=== PATIENT | female | born 1980 | race Caucasian/White ===

== ENCOUNTER 2022-04-01 14:48 | Outpatient (CLI) | payer OTHER, SELFPAY ==
--- NOTE | ~2022-04-01 | XR_ITS ---
EXAM: XR foot RT standing 2V DATE: 04/01/2022 15:27 HISTORY: R/O ARTHRITIS, RT FOOT SURGERY 2018, RT FOOT WORSE THAN LFT . COMPARISON: None available. FINDINGS: Normal mineralization. No fracture or dislocation. No lytic or blastic lesion. Moderate hart llux valgus. Fixation screws and paola in the first ray, without hardware fracture or perihardware lucency. Achilles and plantar enthesopathy. Mild loss of the longitudinal arch. No erosion or periost eal change. Soft tissues within normal limits. IMPRESSION: No hardware related complication. Achilles and plantar enthesopathy. Mild pes planus. Reviewed, dictated and finalized at location K. IMPRESSION: No hardware related complication. Achilles and plantar enthesopathy . Mild pes planus.
--- NOTE | ~2022-04-01 | XR_ITS ---
EXAM: XR hand BI arthritis min 3V DATE: 04/01/2022 15:26 HISTORY: R/O ARTHRITIS, RT HAND HAS MORE PAIN THEN THE LFT HAND . COMPARISON: None available. FINDINGS: Normal mineralization. Old right ulnar styloid fracture. No acute fracture or dislocation. No lytic or blastic lesion. Joint spaces are maintained. No erosion or periosteal change. Soft tissu es within normal limits. IMPRESSION: Normal bilateral hand radiograph findings. Reviewed, dictated and finalized at location K.
--- NOTE | ~2022-04-01 | XR_ITS ---
EXAM: XR foot LT standing 2V DATE: 04/01/2022 15:27 HISTORY: R/O ARTHRITIS, SURGERY TO LFT FOOT JUL 2018 . COMPARISON: None available. FINDINGS: Normal mineralization. No fracture or dislocation. No lytic or blastic lesion. Screw and s taple fixation in the first ray. Perihilar hardware lucency at the distal screw. No hardware fracture . Mild hallux valgus. Trace Achilles and moderate plantar enthesopathy. Mild loss of the longitudinal arch. No erosion or periosteal change. Soft tissues within normal limits. IMPRESSION: Perihilar hardware lucency at the distal fixation screw concerning for loosening or infec tion. Reviewed, dictated and finalized at location K. IMPRESSION: Perihilar hardware lucency at the distal fixation screw concerning for loosening or infection.
== END 2022-04-01 14:49 | disposition home or self-care (01) ==
LOC: ANHIMG 14:51
PROVIDERS: PCP Family Medicine; Visit Provider Internal Medicine
DX: R76.8 Other specified abnormal immunological findings in serum (principal); M13.80 Other specified arthritis, unspecified site
CPT/HCPCS: 73130; 73620

== ENCOUNTER 2022-05-29 08:50 | Outpatient (CLI) | payer OTHER, SELFPAY ==
--- NOTE | ~2022-05-29 | CT_ITS ---
EXAMINATION: CT chest high resolution wo ri DATE: 05/29/2022 09:14 INDICATION: Interstitial lung disease, pulmonary fibrosis TECHNIQUE: Computed tomography (CT) of the chest was performed without intravenous contrast. The dose -length product (DLP) was 660.93 mGy-cm. Automated exposure control and iterative reconstruction tech nique were employed. COMPARISON: None FINDINGS: There is a cluster of nodules in the right lower lobe measuring up to 7 mm. No specific fin dings of interstitial lung disease are identified. Calcified right hilar lymph nodes likely reflect o ld granulomatous disease. The lungs are free of focal airspace opacities. No pleural effusion or pneu mothorax. No pathologically enlarged thoracic lymph nodes are identified. The heart size is normal. T here is mild thoracic spondylosis. There are surgical changes of the stomach. IMPRESSION: 1. No specific findings of chronic interstitial lung disease. 2. Clustered nodules in the right lower lobe, likely infectious/inflammatory. Reviewed, dictated and finalized at location B.
== END 2022-05-29 08:51 ==
PROVIDERS: PCP Family Medicine; Visit Provider Internal Medicine Pulmonary Disease
DX: R21 Rash and other nonspecific skin eruption (principal); R76.8 Other specified abnormal immunological findings in serum; J84.10 Pulmonary fibrosis, unspecified; M13.80 Other specified arthritis, unspecified site; R91.8 Other nonspecific abnormal finding of lung field
CPT/HCPCS: 71250

== ENCOUNTER 2022-05-29 09:30 | Outpatient (CLI) | payer OTHER, SELFPAY ==
--- NOTE | 2022-06-01 17:50 | WPDPFTINT ---
PFT Procedure Performed PFT Procedure Performed Spirometry with Pre/Post Bronchodilator Plethysmography (Lung Vol) Diffusing Cap (DLCO) Flow Vol Loop PFT Interpretation This is a pulmonary function test with pre and post-bronchodilator spirometry, plethysmography and diffusing capacity. The test was performed and results interpreted in accordance with the 2019 and 2005 ATS/ERS Task Force guidelines respectively using the Global Lung Function Initiative-2012 reference equations. Patient demonstrated good effort and cooperation. Reproducibility criteria were met. The quality of the pre bronchodilator spirometry maneuver was Grade A and post bronchodilator spirometry maneuver was Grade A. Findings: Spirometry: The contour the inspiratory and expiratory flow tracing are normal. The pre bronchodilator FVC is 4.43 L, 104% predicted. The pre bronchodilator FEV1 is 3.53 L, 102% predicted. The pre bronchodilator FEV1: FVC ratio was 80%. The post bronchodilator FVC is 4.63 L, representing a 4% increase. The post bronchodilator FEV1 is 3.76 L, representing a 7% increase. The post bronchodilator FEV1: FVC ratio was 81%. Plethysmography: The total lung capacity is 6.41 L, 113% predicted. The functional residual capacity is 3.51 L, 111% predicted. The residual volume is 1.69 L, 95% predicted. Diffusing capacity: The diffusing capacity unadjusted for hemoglobin and carboxyhemoglobin is 27.7, 108% predicted. The diffusing capacity adjusted for alveolar volume is 5.19, 113% predicted. Impression: The spirometry is normal without evidence of an obstructive abnormality. There is no significant improvement after inhaling a single dose of albuterol. The lung volumes are normal. The diffusing capacity is normal. There are no prior studies for comparison
== END 2022-05-29 09:31 | disposition home or self-care (01) ==
PROVIDERS: PCP Family Medicine; Visit Provider Internal Medicine Pulmonary Disease
DX: J84.10 Pulmonary fibrosis, unspecified (principal); R21 Rash and other nonspecific skin eruption
CPT/HCPCS: 94060; 94726; 94729

== ENCOUNTER 2022-06-03 08:11 | Outpatient (CLI) | payer OTHER, SELFPAY ==
--- NOTE | 2022-06-18 10:09 | WPDSLEEPSTUD ---
Sleep Study Date of Study: 06/03/22 Ordering Provider: Chaz Acuña MD Interpreting Physician: Rhona Lujan MD Sleep Study Type: Split Polysomnogram Height: 1.73 m Weight: 117.934 kg Body Mass Index: 39.5 Neck Circumference (inches): 15.5 Leonard: 14 Reason for Sleep Study Non restorative sleep, previously used CPAP in 2018 prior to losing 90 lb bariatric surgery March 2020 Sleep History Chelsy Yan is a 41 year-old woman with a history of obstructive sleep apnea, anxiety, GERD and hypertension with palpitations. She used CPAP before losing 90 lb. She has frequent nightmares. She talks in her sleep. She wakes up feeling exhausted. She moves quite a bit at night. With CPAP use, she often took off the mask during the night. She has a difficult time falling asleep and staying asleep. Both parents wear CPAP and have restless legs syndrome. She occasionally awakens from sleep feeling short of breath. She frequently awakens at night with heartburn, belching or coughing. She occasionally snores and occasionally this is loud enough that others complain about it. She constantly has trouble sleeping with a cold. She occasionally wakes up gasping for breath at night. She occasionally has breathing problems at night observed by others. She frequently sweats excessively at night. She constantly notices her heart pounding or beating irregularly at night. She frequently falls asleep during the day, rarely falls asleep involuntarily, never falls asleep while driving. She does not have loss of muscle tone with strong emotion. She occasionally has daytime difficulties due to excessive sleepiness. 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 She occasionally feels paralyzed on waking or falling asleep. She frequently has vivid dreamlike scenes on waking or falling asleep. She does not feel afraid to go to sleep. Normal bedtime is between 9:00 p.m. and 10:00 p.m., taking hours to fall asleep, typically waking 3-4 times at night. During these awakenings, she may go to the bathroom, toss and turn and try to reposition. It may take her 15 minutes or up to 2 hours to return to sleep. She wakes the morning at 6:45 a.m.. On weekends, she stays awake later, 11:00 p.m. and wakes later, 8:00 a.m.. Her work schedule is 3-4 days a week 7:30 a.m. to 7:30 p.m.. She takes naps in the afternoon or evening. A short nap is not refreshing. She is drowsy after waking for 2 hours. She feels better in the evening compared to other times of day. Habits: Never smoked tobacco. Caffeine 40 oz a day. No alcohol. No recreational drugs. [facility] Past Medical History Medical History (Updated 06/18/22 @ 12:14 by Rhona Lujan MD) Allergies RENETTA positive Anxiety Cancer GERD (gastroesophageal reflux disease) Granulomatous lung disease Headache Hypertension Obstructive sleep apnea Rash and nonspecific skin eruption Secondary inflammatory arthritis Surgical History Surgical History H/O gastric sleeve H/O sinus surgery H/O wrist surgery History of bunionectomy History of carpal tunnel surgery Hx of tonsillectomy Previous section Social History Social History Smoking status: Never smoker Alcohol intake: never Medications Home Medications Medication Instructions Recorded Confirmed Type cetirizine 10 mg tablet (Zyrtec) 10 mg PO DAILY PRN 03/31/22 05/12/22 History citalopram 40 mg tablet 40 mg PO DAILY 03/31/22 05/12/22 History desogestrel 0.15 mg-ethinyl 1 tablet PO DAILY 03/31/22 05/12/22 History estradiol 0.03 mg tablet (Isibloom) nebivolol 10 mg tablet (Bystolic) 10 mg PO DAILY 03/31/22 05/12/22 History omeprazole 20 mg capsule,delayed 20 mg PO DAILY 03/31/22 05/12/22 History release albuterol sulfate 90 mcg/actuation 2 inh inhalation Q4H PRN shortness 05/12/22 05/12/22 Rx aerosol inhaler of breath
[2022-06-18 12:10] VITALS: BMI 39.5
--- NOTE | 2022-07-22 14:07 | SLEEP ---
pt has rcd machine from [facility] care
== END 2022-06-04 06:53 | disposition home or self-care (01) ==
LOC: ANHCSM 08:18
PROVIDERS: PCP Family Medicine; Visit Provider Internal Medicine Pulmonary Disease
DX: G47.10 Hypersomnia, unspecified (principal); G47.33 Obstructive sleep apnea (adult) (pediatric); G47.61 Periodic limb movement disorder
CPT/HCPCS: 95811

== ENCOUNTER 2023-10-21 08:00 | Outpatient (CLI) | payer BC, SELFPAY ==
--- NOTE | ~2023-10-21 | CT_ITS ---
EXAMINATION:CT diagnostic chest wo con DATE: 10/21/2023 09:13 INDICATION: Pulmonary fibrosis, unspecified. TECHNIQUE: Computed tomography (CT) of the chest was performed without intravenous contrast. Automate d exposure control and iterative reconstruction technique were employed. The dose-length product (DLP ) was 274.34 mGy-cm. COMPARISON: Chest CT 05/29/2022 FINDINGS: Calcified right lung nodules and calcified right hilar lymph nodes are consistent with old granulomatous disease. There are small bilateral posterior diaphragmatic hernias containing fat. No b ronchiectasis or honeycombing. No pleural effusion. The heart size is normal. No pericardial effusion . There are surgical changes in the stomach. There is mild thoracic spondylosis. There is mild chroni c anterior wedging of T11-L1 vertebral bodies. IMPRESSION: 1. No evidence of chronic interstitial lung disease. Reviewed, dictated and finalized at location A.
--- NOTE | 2023-10-21 15:50 | WPDPFTINT ---
PFT Procedure Performed PFT Procedure Performed Spirometry with Pre/Post Bronchodilator Plethysmography (Lung Vol) Diffusing Cap (DLCO) Flow Vol Loop PFT Interpretation DOS: 10/21/2023 REQUESTING: Dr Chaz Acuña REASON FOR TESTING: asthma, possible granulomatous disease PULMONARY FUNCTION TESTS Results are reliable and reproducible. Spirometry: Pre-bronchodilator FEV1 is 3.93 L, 114%, normal. Pre bronchodilator FVC is 4.75 L, 112%, normal. FEV1/FVC is 83%. After bronchodilator there is a 1% increase in the FEV1 and the FVC, insignificant, the ratio remains the same. Lung volumes: Total lung capacity is 6.29 L, 111%, normal. Residual volume is 1.54 L, 86%, normal. RV/TLC is 24%, normal range. FB are see is 3.02 L, 95%, normal. Airway resistance is 0.12umZ96/L/sec, 55%, low. Diffusion: DLCO is 28.6, 113%, normal. DLCO/VA is 4.83, 106%, normal. Flow volume loop: Overall configuration is rounded, both inspiratory and expiratory limbs. IMPRESSION: Normal spirometry without response to bronchodilator, normal lung volumes and normal diffusion. Like response to bronchodilators should not preclude use of clinically indicated. Compared to a prior study on 05/29/2022 values are similar. Rhona Lujan MD
== END 2023-10-21 08:01 | disposition home or self-care (01) ==
LOC: ANHPFT 08:01
PROVIDERS: PCP Family Medicine; Visit Provider Internal Medicine Pulmonary Disease
DX: J84.10 Pulmonary fibrosis, unspecified (principal); M13.80 Other specified arthritis, unspecified site; L92.0 Granuloma annulare; R76.8 Other specified abnormal immunological findings in serum; R21 Rash and other nonspecific skin eruption
CPT/HCPCS: 71250; 94060; 94726; 94729

== ENCOUNTER 2023-11-19 08:26 | Outpatient (CLI) | payer BC, SELFPAY ==
[2023-11-19 09:02] LABS: Hematocrit 41.1 % (37.0-47.0); Hemoglobin 13.1 g/dL (12.0-15.0); Immature Platelet Fraction Pct 13.9 % (0.9-11.2); Mean Corpuscular HGB Conc 31.9 g/dl (32-36); Mean Corpuscular Hemoglobin 30.3 pg (26-34); Mean Corpuscular Volume 95.1 fl (80-100); Mean Platelet Volume 13.2 fl (7.4-10.4); Platelet Count Result 224 k/mm3 (150-375); Red Blood Count 4.32 M/mm3 (4.2-5.4); Red Cell Distribution Width 13.6 % (11.5-14.5); White Blood Count 6.5 K/mm3 (4.5-10.0)
[2023-11-19 09:10] LABS: Alanine Aminotransferase 18 U/L (6-35); Albumin Level 4.2 g/dL (3.5-5.1); Alkaline Phosphatase 59 U/L (38-126); Anion Gap 4 mmol/L (4-12); Aspartate Amino Transferase 22 U/L (14-36); Bilirubin,Total 0.5 mg/dL (0.2-1.3); Blood Urea Nitrogen 12 mg/dL (7-17); Calcium 9.4 mg/dL (8.4-10.2); Carbon Dioxide 29 mmol/L (22-30); Chloride 107 mmol/L (98-107); Estimated Glomerular Filt Rate > 60; Glucose 92 mg/dL (65-110); Sodium 140 mmol/L (137-145)
[2023-11-19 10:13] LABS: Hepatitis B Surface Antigen Negative (Negative)
[2023-11-19 10:31] LABS: Hepatitis B Surface Anti Res Negative; Hepatitis C Virus Antibody Negative (Negative)
[2023-11-21 06:55] LABS: Hepatitis B Core Ab Total NON-REACTIVE (NON-REACTIVE)
[2023-11-22 14:18] LABS: NIL 0.02 IU/mL; Quantiferon TB Plus, 1T NEGATIVE (NEGATIVE)
== END 2023-11-19 08:27 | disposition home or self-care (01) ==
PROVIDERS: PCP Family Medicine
DX: Z79.899 Other long term (current) drug therapy (principal)
CPT/HCPCS: 36415; 80048; 80076; 85027; 85055; 86480; 86704; 86706; 86803; 87340

== ENCOUNTER 2024-11-28 09:09 | Outpatient (CLI) | payer BC, SELFPAY ==
--- NOTE | ~2024-11-28 | MM_ITS ---
EXAMINATION: MM screening fanny BI w flaquita HISTORY: Screening TECHNIQUE: Craniocaudal and mediolateral oblique 3-D tomosynthesis images were obtained and synthetic 2-D images were generated. CAD analysis was submitted and interpreted. COMPARISON: No prior mammogram is available for comparison at this institution. BREAST PARENCHYMAL COMPOSITION: Not dense: There are scattered areas of fibroglandular density. FINDINGS: There is no evidence of suspicious mass, calcification, or architectural distortion to sugg est malignancy in either breast. There has been no suspicious interval change. IMPRESSION: 1. No mammographic evidence of malignancy. 2. Recommend routine screening mammography in one year. BI-RADS Category 1: Negative Reviewed, dictated and finalized at location A.
--- OUTSIDE RECORDS SUMMARY | 2024-11-28 10:03 | XMS_ITS | Encounter Summary ---
Author Organization [facility] Address [address] [place] [place] [address] Care Team Providers Care Crew Caller Name Role Phone Melanie Neves MD Primary Care Provider [phone] Encounter Details Date Type Department Care Team (Late st Contact Info) Description 06/22/2022 Lab Requisition [facility] [address] [place] [id number] Lonny Mckeon MD [address] [facility] [address] [place] [address] Social History Tobacco Use Types Packs/Day Years Used Date Smoking Tobacco: Never Smokeless Tobacco: Never Alcohol Use Standard Drinks/Week Comments No 0 (1 standard drink = 0.6 oz pur e alcohol) rare Comments No Sex and Gender Information Value Date Recorded Sex Assigned at Not on file Legal Sex Female 7:36 PM 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 Answer Date of Assessment Author No 04/03/2020 4:45 PM CDT Odessa Gordon RN * Is person blind or have serious difficulty seeing? Answer Date of Assessment Author No 04/03/2020 4:45 PM CHARLIT Odessa Gordon RN * Does person have serious difficulty walking/climbing stairs? Answer Date of Assessment Author No 04/03/2020 4:45 PM CDT Odessa Gordon RN * Does person have difficulty dressing/bathing? Answer Date of Assessment Author No 04/03/2020 4:45 PM CDT Odessa Gordon RN * Does person have difficulty doing errands alone? Answer Date of Assessment Author No 04/03/2020 4:45 PM CHARLIT Odessa Gordon RN documented as of this encounter Mental Status * Does person have difficulty concentrating/remembering/making decisions? Answer Entry Date Author No 04/03/2020 4:45 PM Odessa Cunningham RN documented in this encounter Plan of Treatment Upcoming Encounters Date Type Department Care Team (Late st Contact Info) Description 06/29/2025 11:30 AM SENIOR SYSTEM OPERATOR Video Visit [facility] [address] [place] [address] Claudia Drake APRN-SHIPPING SUPPORT [address] [facility] [address] [place] [address] documented as of this encounter Procedures Procedure Name Priority Date/Time Associated Diagnosis Comments DERMATOPATHOLOGY Routine 06/19/2022 12:0 0 AM SENIOR SYSTEM OPERATOR documented in this encounter Results * DERMATOPATHOLOGY (06/19/2022 12:00 AM SENIOR SYSTEM OPERATOR) Case Report Dermatopathology Report Case: [id number] Authorizing Provider: Lonny Mckeon MD Collected: 06/19/2022 12:00 AM Ordering Location: [facility] Derm[facility] Lab Received: 06/22/2022 07:19 AM Pathologist: Sushila Reese MD Specimen: Skin, left wrist 2 3:42 PM SENIOR SYSTEM OPERATOR DERMATOPATHOLOGY LABORATORY Final Diagnosis Specimen A. SKIN, left wrist: GRANULOMATOUS DERMATITIS (L92.0) (see microscopic description and comment) 2 3:42 PM [facility] DERMATOPATHOLOGY LABORATORY Clinical History Sarcoidosis vs. Other. Path# [id number] 2 3:42 PM [facility] DERMATOPATHOLOGY LABORATORY Gross Description Specimen A: Received is one formalin filled container labeled with the patient's name and designated left wrist. The specimen consists of a shave biopsy measuring [id number] and another piece of tissue measuring [id number]. Jar 0. 2 3:42 PM [facility] DERMATOPATHOLOGY LABORATORY Microscopic Description Specimen A. SKIN, left wrist: Epidermis and superficial portions of papillary dermis are present for evaluation. There are lymphocytes around blood vessels and histiocytes between collagen bundles some of which are arranged in a palisade. Eosinophils and neutrophils are not seen. Birefringent material is not observed when the specimen is examined under polarized light. Colloidal iron stain reveals dermal mucin deposition. Grocott's methenamine silver (GMS) stain fails to highlight fungal elements in the available sections. CRISELDA stain is negative for acid-fast mycobacteria in the sections examined. COMMENT: The histologic differential diagnosis includes granuloma annulare, which is somewhat favored, interstitial granulomatous dermatitis, a granulomatous hypersensitivity reaction, less likely an infectious process. Sarcoidosis was considered, however less likely given the degree of associated dermal lymphoid infiltrate. Clinical correlation with culture is recommended if clinically indicated. 2 3:42 PM [facility] DERMATOPATHOLOGY LABORATORY Disclaimer An external and internal positive and negative controls are appropriate for the histochemical, immunohistochemical and immunofluorescence stain(s) in this case (if any), except where stated explicitly. The performance characteristics of the stain(s) cited in this report were developed and its performance characteristic determined by the Dermatopathology Laboratory at [facility], directed by Dr. Jannet Davis. These tests need not be, and therefore are not, approved by the [place] Food and Drug Administration. The tests are used for clinical purposes. Billing Codes Specimen Charges Stain Charges 58443 1 [id number] 1 1 1 2 3:42 PM [facility] DERMATOPATHOLOGY LABORATORY Embedded Images 2 3:42 PM [facility] DERMATOPATHOLOGY LABORATORY Pathology/Cytolog y TISSUE SPECIMEN FROM SKIN / Unknown 06/19/2022 06/22/2022 7:19 AM [facility] us Lonny Mckeon MD LAB - PATHOLOGY/CYTOLOGY ORDER KAYLA Final Result DERMATOPATHOLOGY LABORATORY [facility] - Department of Dermatology [address], [address] [phone] documented in this encounter Visit Diagnoses Not on filedocumented in this encounter Care Teams Crew Caller Relationship Specialty Start Date End Date Melanie Neves MD [address] [facility] [address] [place] [address] PCP - General Family Medicine 07/22/13 documented as of this encounter
--- OUTSIDE RECORDS SUMMARY | 2024-11-28 10:03 | XMS_ITS | Encounter Summary ---
Author Organization [facility] Address [address] [place] [address] Care Team Providers Care Electromechanical Assembler Name Role Phone Melanie Neves MD Primary Care Provider [phone] Kristen Lopez MD Unavailable [phone] Kristen Lopez MD Unavailable [phone] Kristen Lopez MD Unavailable [phone] Kristen Lopez MD Unavailable [phone] Kristen Lopez MD Unavailable Encounter Details Date Type Department Care Team (Late st Contact Info) Description 05/05/2024 Prep for Procedure [facility] Pre-[facility]mission [place] [address] Pla Gonzalez MD [address] 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 Wish to be (Past 1 Month) No 05/05/2024 6:45 AM CDT Leticia Aleman RN Act robina 2. Non-Specific Active Suicidal Thoughts (Past 1 Month) No 05/05/2024 6:45 AM CDT Leticia Aleman RN Act robina 6. Suicidal Behavior (Lifetime) No 05/05/2024 6:45 AM CDT Leticia Aleman RN Act robina documented as of this encounter Plan of Treatment Not on file documented as of this encounter Results * URINE BACTERIA CULTURE (04/29/2024 11:44 AM CDT) SPEC DESCRIPTION URINE CLEAN CATCH 04/29/2024 11:44 AM CDT [facility] SPECIAL REQUESTS NO SPECIAL REQUEST 04/29/2024 11:44 AM CDT [facility] CULTURE RESULT NO GROWTH 2 DAYS 05/01/2024 7:11 AM CDT [facility] URINE SPECIMEN OBTAINED BY CLEAN CATCH PROCEDURE / Unknown 04/29/2024 11:44 AM CDT 04/29/2024 11:50 AM CDT us Pal Gonzalez MD MICROBIOLOGY - GENERAL ORDERABLES Final Result [facility] [address] [place] [address], [place] [phone] documented in this encounter Visit Diagnoses Diagnosis Right renal stone- Primary documented in this encounter Care Teams Electromechanical Assembler Relationship Specialty Start Date End Date Melanie Neves MD [address] [place] [phone] PCP - General FAMILY PRACTICE 06/21/18 Kristen Lopez MD [address] [place] [address] CARDIOVASCULAR DISEASE 05/01/24 Kristen Lopez MD [address] [place] [address] CARDIOVASCULAR DISEASE 05/02/24 [place] [address] [address] CARDIOVASCULAR DISEASE 05/02/24 [place] [address] [address] CARDIOVASCULAR DISEASE 05/02/24 [place] [address] [address] CARDIOVASCULAR DISEASE 05/02/24 documented as of this encounter
--- OUTSIDE RECORDS SUMMARY | 2024-11-28 10:03 | XMS_ITS | Clinical Summary ---
Author Organization [facility] Address [address] [place] [address] Care Team Providers Care Superintendent Building Name Role Phone Melanie Neves MD Primary Care Provider [phone] Source Comments [facility],non-owned Affiliates and Associated Physician Practices is amultiple site organization consisting of ambulatory clinics and hospital sitesin [place], [place], [place] and [place]. This disclosure is being madepursuant to the Care Everywhere program and may not contain all information available regarding this patient. Last updated 18.[facility] Allergies Active Allergy Reactions Criticality Noted Date Comments Amoxicillin Urticaria Medium 07/22/2013 Codeine Vomiting 07/22/2013 Contrast-Iodinated Agents For Ct/Other Urticaria Medium 03/04/2024 Hydrocodone Vomiting 07/22/2013 Neomycin Swelling,Skin Reactions 01/22/2020 causes it to fester and pus Nsaids Other 01/11/2021 Gastric sleeve surgery Penicillins Urticaria Medium 1986 Vancomycin Rash Medium 01/22/2020 Medications * Be aware that medications may not be up to date on this document. Alwaysverify current medications with the patient. citalopram (CELEXA) 40 MG tablet Take 1 (one) tablet by mouth at bedtime Active nebivolol (Bystolic) 10 MG tablet Take 1 (one) tablet by mouth at bedtime Active Dulera 200-5 MCG/ACT inhaler Inhale 1 (one) puff by mouth 2 times daily 3 Active omeprazole (PriLOSEC) 20 MG capsuleIndicati ons:Gastroesoph ageal reflux disease without esophagitis Take 1 (one) capsule by mouth 2 times daily, before breakfast and supper 60 capsule 11 4 Active hydroxychloroqu ine (Plaquenil) 200 MG tablet Take 2 (two) tablets by mouth at bedtime Active multivitamin daily tablet Take 1 (one) tablet by mouth daily with food Active B Hevcsou-U-Jkdgv Acid (vitamin B complex with C) Take 1 (one) tablet by mouth once daily Active acetaminophen (Tylenol) 325 MG tablet Take 2 (two) tablets by mouth every 6 hours as needed Maximum allowable Acetaminophen amount = 4 Grams (4000 mg) / 24 hours. 4 Active ondansetron, disintegrating, (Zofran ODT) 4 MG tablet Take 1 (one) tablet by mouth every 6 hours as needed for Nausea/Vomiting Allow tablet to dissolve on the tongue 20 tablet 4 Active Additional Information Patient not taking.Reported on 03/13/2024 polyethylene glycol 3350 (Miralax) 17 g packet Take 17 (seventeen) g by mouth once daily as needed for Constipation 4 Active ondansetron, disintegrating, (Zofran ODT) 4 MG tablet DISSOLVE 1 (ONE) TABLET ON THE TONGUE EVERY 6 HOURS NEEDED FOR NAUSEA/VOMITING 20 tablet 4 025 Active Active Problems Problem Noted Date Diagnosed Date Peptic ulcer disease 03/04/2024 Abdominal pain, unspecified abdominal location 0 03/04/2024 S/P gastric bypass 06/30/2023 S/P laparoscopic sleeve gastrectomy 04/03/2020 Supervision of normal first 07/23/2013 Overview (07/23/2013): Blood type: O- Rubella: immune Hep B surface antigen:non-reactive RPR: non-reactive HIV:Negative GCT: 73 Migraines 07/23/2013 Hypertension in 07/23/2013 Overview (07/23/2013): labetelol 100 BID Immunizations Immunization Administration Dates Next Due INFLUENZA VACCINE 06/09/2013 INFLUENZA VACCINE, QUADR. (F LUZONE; FLULAVAL; FLUARIX; AFLURIA QUADRIVALENT; 6MO+), 0.5 ML (IIV4) 06/17/2020 Rho D Immune Globulin 07/24/2013 TDAP (7yrs+) 07/24/2013 Family History Medical History Relation Name Comments Diabetes Father Heart Disease Father Hypertension Father Hypertension Mother CAD (Coronary Artery Disease) Paternal Uncle CVA Paternal Uncle Diabetes - Type 2 Paternal Uncle Relation Name Status Comments Father Mother Paternal Uncle Social History Tobacco Use Types Packs/Day Years Used Date Smoking Tobacco: Never Passive Smoke Exposure: Never Smokeless Tobacco: Never Tobacco Cessation:Counseling Given: Not Answered Alcohol Use Standard Drinks/Week Comments Not Currently 0 (1 standard drink = 0.6 oz pur e alcohol) rare AUDIT-C Answer Date Recorded Q1: How often do you have a drink containing alc ohol? Monthly or less 03/06/2024 Q2: How many drinks containi ng alcohol do you have on a typical day when you are drinking? 1 or 2 03/06/2024 Q3: How often do you have si x or more drinks on one occasion? Never 03/06/2024 Overall Financial Resource Strain (CARDIA) Answe r Date Recorded How hard is it for you to pa y for the very basics like food, housing, medical care, and heating? Not very hard 03/06/2024 [facility] - Occupational Stress Questionnaire Answer Date Recorded Do you feel stress - tense, restless, nervous, or anxious, or unable to sleep at night because your mind is troubled all the time - these days? Not at all 03/06/2024 Hunger Vital Sign Answer Date Recorded Within the past 12 months, y ou worried that your food would run out before you got the money to buy more. Never true 03/06/20 24 Within the past 12 months, t he food you bought just didn't last and you didn't have money to get more. Never true 03/06/2024 PRAPARE - Transportation Answer Date Re corded In the past 12 months, has l ack of transportation kept you from medical appointments or from getting medications? No 02/07 In the past 12 months, has l ack of transportation kept you from meetings, work, or from getting things needed for daily living? No 03/06/2024 Housing Stability Vital Sign Answer Apollo e Recorded In the last 12 months, was t here a time when you were not able to pay the mortgage or rent on time? No 03/06/2024 In the last 12 months, how many places have you lived? 1 03/06/2024 In the last 12 months, was t here a time when you did not have a steady place to sleep or slept in a fdc (including now)? 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 Gender Identity Not on file Sexual Orientation Not on file Last Filed Vital Signs Vital Sign Reading Time Taken Comments Blood Pressure 116/76 03/13/2024 10:47 AM CDT Pulse 83 03/13/2024 10:47 AM CDT Temperature 36.3 C (97.4 F) 03/13/2024 10:47 AM CDT Respiratory Rate 18 03/06/2024 7:33 AM CDT Oxygen Saturation 98% 03/13/2024 10:47 AM CDT Inhaled Oxygen Concentration - - Weight 92.7 kg (204 lb 6.4 oz) 03/13/2024 10:47 AM CDT Height 172 cm (5' 7.72 ) 03/13/2024 10:47 AM CDT Body Mass Index 31.34 03/13/2024 10:47 AM CDT Plan of Treatment Upcoming Encounters Date Type Department Care Team (Late st Contact Info) Description 06/29/2025 11:30 AM BAND HEAD SAW OPERATOR Video Visit [facility] Weight Management Services [id number] [place] [address] Claudia Drake, MARINE CARGO INSPECTOR-TURNAROUND ENGINEER [address] [place] [address] Health Maintenance Due Date Last Done Comments LIPID TESTING 1982 MAMMOGRAM 1982 HIV SCREENING 1997 HEPATITIS C SCREENING 12/18/2000 HEPATITIS B VACCINE (1 of 3 - 19+ 3-dose series) 2001 DTAP/TDAP/TD VACCINES (2 - Td or Tdap) 07/24/2023 07/24/2013 COVID-19 VACCINE ( season) 2024 04/30/2022, 05/13/2021, 10/13/2020, Additional history exists DEPRESSION SCREENING 08/09/2024 INFLUENZA VACCINE (Season Ended) 2025 04/30/2022, 05/13/2021, 06/17/2020, Additional history exists SCREENING FOR DIABETES 03/06/2027 , 03/05/2024, 03/05/2024, Additional history exists PAP SMEAR 06/14/2027 06/14/2024 ZOSTER VACCINE (1 of 2) 2032 HIB VACCINE Aged Out No longer eligi ble based on patient's age to complete this topic HPV VACCINE Aged Out No longer eligi ble based on patient's age to complete this topic MENINGOCOCCAL (Group B) VACCINE SHARED DECISION-MAKING Aged Out No longer eligible based on patient's age to complete this topic MENINGOCOCCAL GROUPS A/C/Y/W VACCINE Aged Out No longer eligible based on patient's age to complete this topic PNEUMOCOCCAL VACCINE Aged Out No long er eligible based on patient's age to complete this topic Procedures Procedure Name Priority Date/Time Associated Diagnosis Comments HEMOGLOBIN A1C Routine 03/06/2024 3:58 AM CDT from Last 3 Months or Most Recently Relevant to Health Maintenance Results * HEMOGLOBIN A1C (03/06/2024 3:58 AM CDT) Hemoglobin A1c 5.1 <5.7 % 03/06/2024 5:08 AM CDT [facility] Estimated Average Glucose 100 mg/dL 03/06/2024 5:08 AM CDT [facility] Blood BLOOD SPECIMEN / Unknown Venipuncture / Unknown 03/06/2024 3:58 AM CDT 03/06/2024 4:43 AM CDT Narrative [facility] - 03/06/2024 5:08 AM CDT HbA1c Interpretation: Normal: < 5.7% Pre-diabetes: 5.7-6.4% Diabetes: Equal to or greater than 6.5% Test results diagnostic of diabetes should be repeated for confirmation. Treatment target values recommended by ADA and other clinical organizations should be used to evaluate metabolic control in patients. This test should not replace glucose testing for patients with Type 1 diabetes, pediatric patients, or women. Falsely low HbA1c results may be observed in patients with clinical conditions that shorten erythrocyte life span or decrease mean erythrocyte age such as the presence of unstable hemoglobin variants, elevated hemoglobin F level or other causes of hemolytic anemia. HbA1c may not accurately reflect glycemic control when clinical conditions that affect erythrocyte survival are present. Severe Iron deficiency anemia may yield falsely high results. Hemoglobin A1c assay should not be used to diagnose or monitor diabetes in patients with malignancy, recent blood transfusion, chronic kidney or liver disease. This method may yield falsely low results when hemoglobin (HbF) exceeds 5% in the specimen. The Bernardo Alinity assay for the measurement of HbA1c is a National Glycohemoglobin Standardization Program (NGSP) certified method. 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 Man Expl anation Adv Directive/Living Will/POA 04/05/2020 5:04 PM * Full Code (Latest Code Status on File) Date Activated Date Inactivated Comments 03/04/2024 5:37 AM 03/06/2024 11:59 AM * Full Code Date Activated Date Inactivated Comments 06/30/2023 2:28 PM 07/01/2023 3:40 PM * Full Code Date Activated Date Inactivated Comments 04/03/2020 10:24 AM 04/04/2020 5:19 PM * FULL RESUSCITATION Date Activated Date Inactivated Comments 07/23/2013 7:41 PM 07/25/2013 1:17 PM * FULL RESUSCITATION Date Activated Date Inactivated Comments 07/23/2013 12:57 PM 07/23/2013 5:26 PM Healthcare Agents on File Name Relationship Healthcare Agent Relationshi p Communication Sam Yan Father Power of Bottling Room Worker (POA) Care Teams Superintendent Building Relationship Specialty Start Date End Date Melanie Neves MD [address] [place] [address] PCP - General Family Medicine 07/22/13
--- OUTSIDE RECORDS SUMMARY | 2024-11-28 10:03 | XMS_ITS | Clinical Summary ---
Author Organization [facility] Address [address] 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
--- OUTSIDE RECORDS SUMMARY | 2024-11-28 10:03 | XMS_ITS | CONTINUITY OF CARE DOCUMENT ---
Author Name naderlorriemadison Address Unknown Organization [facility] Address [address] [place] [address] Phone [phone] Care Team Providers Care Information Technology Technician Name Role Phone John SHELTON, Kristen Unavailable SAMANTHA BARTH MD Unavailable [phone] SAMANTHA BARTH MD Unavailable [phone] PROBLEMS Condition Status Date Provider Notes Dizziness active Kristen Lopez MD Pseudotumor cerebri active Kristen Mondragon Hypertension active ? Kristen Lopez MD NICHOLE - on CPAP active Kristen Lopez MD Palpitations active Kristen Lopez MD Obesity s/p bariatric surgery active Eduard Lopez MD PVC's w/bigeminy active Kristen Lopez MD Leg Edema active Kristen Lopez MD arthritis - inflammatory active Kristen randhawa MD Syncope active Kristen Lopez MD Granuloma annulare active Kristen Lopez MD Cardiology examination active Kristen weems MD ENCOUNTERS Date Type Provider Location Encounter Diag nosis - In-person encounter Office Visit Essence Friend MD [facility] - In-person encounter Office Visit Kristen Lopez MD [facility] Cardiology examination - In-person encounter Office Visit Kristen Lopez MD [facility] SyncopeGranuloma annulare - In-person encounter Office Visit Kristen Lopez MD [facility] - In-person encounter Office Visit Kristen Lopez MD [facility] arthritis - inflammatory - In-person encounter Office Visit Kristen Lopez MD [facility] - In-person encounter Office Visit Kristen Lopez MD [facility] Obesity s/p bariatric surgery - In-person encounter Office Visit Kristen Lopez MD [facility] - In-person encounter Office Visit Kristen Lopez MD [facility] - In-person encounter Office Visit Kristen Lopez MD [facility] Obesity s/p bariatric surgeryPVC's w/bigeminyLeg Edema - In-person encounter Office Visit Kristen Lopez MD [facility] - In-person encounter Office Visit Kristen Lopez MD [facility] DizzinessPseudotumor cerebriHypertensionOSA - on CPAPPalpitations VITAL SIGNS Date Observation Value Provider Body Mass Index (Ratio) 28.79 kg/m2 Oscar Walters blood pressure, diastolic 109 mm[Hg] Rosario Zamorano blood pressure, systolic 139 mm[Hg] Ibeth Zamorano oxygen saturation, oximetry 97 % Flor Zamorano pulse rate 104 /min Flor Zamorano respiratory rate E&M 12 /min Flor Zamorano weight E&M 195 [lb_av] Flor Zamorano height E&M 69 [in_i] Flor Zamorano blood pressure, cuff size regular [facility] Body [facility] (Ratio) 29.68 kg/m2 Meseret Lopez MD blood pressure, diastolic 64 mm[Hg] [facility] blood [facility], systolic 109 mm[Hg] [facility] oxygen saturation, oximetry 100 % [facility] pulse rate 67 /min [facility] respiratory rate E&M 12 /min [facility] weight E&M 201 [lb_av] [facility] height E&M 69 [in_i] [facility] blood pressure, cuff size regular [facility] (Ratio) 29.24 kg/m2 Oscar Walters blood pressure, diastolic 82 mm[Hg] [facility], systolic 115 mm[Hg] dennis [facility] oxygen saturation, oximetry 100 % [facility] pulse rate 69 /min [facility] respiratory rate E&M 12 /min [facility] weight E&M 198 [lb_av] [facility] height E&M 69 [in_i] [facility] blood pressure, cuff size regular [facility] Body Mass Index (Ratio) 39.42 kg/m2 Francisco Jeffries blood pressure, cuff size large Ke rri Coy blood pressure, diastolic 80 mm[Hg] Ke rri Gruenenfeld blood pressure, systolic 130 mm[Hg] Yael Miranda oxygen saturation, oximetry 97 % Nancie Miranda respiratory rate E&M 14 /min Nancie Lane jony pulse rate 75 /min Nancie Alonzo lder weight E&M 267 [lb_av] Nancie Alonzo lder height E&M 69 [in_i] Nancie Alonzo [facility] Body Mass Index (Ratio) 38.83 kg/m2 Fernanda Howard blood pressure, diastolic 81 mm[Hg] Li nkLogic blood pressure, systolic 122 mm[Hg] Miguelina kLogic blood pressure, diastolic 81 mm[Hg] Myrna brittrosario Eason blood pressure, systolic 122 mm[Hg] Stephane arthur Eason oxygen saturation, oximetry 99 % Albarosario Eason respiratory rate E&M 18 /min Alba Eason pulse rate 72 /min Albarosario Eason weight E&M 263 [lb_av] Abla Jenaro height E&M 69 [in_i] Albarosario Eason Body Mass Index (Ratio) 39.13 kg/m2 Meseret Lopez MD blood pressure, diastolic 80 mm[Hg] Li nkLogic blood pressure, systolic 129 mm[Hg] Miguelina kLogic blood pressure, diastolic 80 mm[Hg] Ca therine [place] blood pressure, systolic 129 mm[Hg] Cat herine [place] oxygen saturation, oximetry 97 % Sandra [place] pulse rate 80 /min Sandra [place] respiratory rate E&M 16 /min Catheri ne [place] weight E&M 265 [lb_av] Sandra Avery blood pressure, cuff size regular Ca therine [place] height E&M 69 [in_i] Sandra [place] Body Mass Index (Ratio) 42.67 kg/m2 Denis Navarro blood pressure, cuff size regular Cy teresa Ro blood pressure, diastolic 86 mm[Hg] Christopher Ro blood pressure, systolic 144 mm[Hg] Jennifer Ro oxygen saturation, oximetry 97 % Kellie Ro respiratory rate E&M 16 /min Kellie Ro pulse rate 84 /min Kellie david weight E&M 289 [lb_av] Kellie david height E&M 69 [in_i] Kellie david Body Mass Index (Ratio) 50.20 kg/m2 Meseret Lopez MD blood pressure, cuff size regular Cy teresa Ro blood pressure, diastolic 76 mm[Hg] Christopher Ro blood pressure, systolic 132 mm[Hg] Jennifer Ro oxygen saturation, oximetry 98 % Kellie Ro respiratory rate E&M 16 /min Kellie Ro pulse rate 70 /min Kellie david weight E&M 340 [lb_av] Kellie david height E&M 69 [in_i] Kellie david Body Mass Index (Ratio) 51.09 kg/m2 Meseret Lopez MD blood pressure, diastolic 80 mm[Hg] Da herb Khari blood pressure, systolic 136 mm[Hg] Dac ia Khari oxygen saturation, oximetry 95 % Marce Khari respiratory rate E&M 18 /min Marce V oss pulse rate 64 /min Marce Khari weight E&M 346 [lb_av] Marce Khari height E&M 69 [in_i] Marce Khari Body Mass Index (Ratio) 51.24 kg/m2 Jaleel Delgado blood pressure, diastolic 80 mm[Hg] Da herb Khari blood pressure, systolic 122 mm[Hg] Dac ia Khari oxygen saturation, oximetry 96 % Marce Khari respiratory rate E&M 18 /min Marce V oss pulse rate 47 /min Marce Khari weight E&M 347 [lb_av] Marce Khari height E&M 69 [in_i] Marce Khari Body Mass Index (Ratio) 50.20 kg/m2 Meseret Lopez MD blood pressure, diastolic 86 mm[Hg] Da herb Khari blood pressure, systolic 144 mm[Hg] Dac ia Khari oxygen saturation, oximetry 97 % Marce Khari respiratory rate E&M 18 /min Marce V oss pulse rate 86 /min Marce Khari weight E&M 340 [lb_av] Marce Hkari height E&M 69 [in_i] Marce Khari Body Mass Index (Ratio) 50.50 kg/m2 Meseret Lopez MD blood pressure, cuff size large Ke rri Gruenenfelder blood pressure, diastolic 86 mm[Hg] Ke rri Gruenenfelder blood pressure, systolic 120 mm[Hg] Yael Miranda oxygen saturation, oximetry 97 % Nancie Miranda respiratory rate E&M 20 /min Nancie borges pulse rate 107 /min Nancie Alonzo lder weight E&M 342 [lb_av] Nancie Alonzo lder height E&M 69 [in_i] Nancie Alonzo lder ALLERGIES Allergy Name Onset Date Reaction Criticality Status NEOMYCIN Low Criticality active CODEINE Low Criticality active PCN Low Criticality active RESULTS Date Observation Value Provider Reference Range Interpretation Location activated partial thromboplastin time (aPTT) 31.0 s [facility] Units converted. See lab report for original value. Normal C, [place] [address] international normalized ratio (INR) 1.21 [facility] 0.90-1.20 High C, [place] [address] prothrombin time (patient) 13.1 s [facility] 9.7-13.0 High C, [place] [address] beta HCG, serum, qualitative Negative [facility] Negative <6 HISTORY OF MEDICATION USE Medication Status Instructions Dates Provider Indications Com ments flecainide 100 mg tablet active TAKE 1 TABLET BY MOUTH TWICE A DAY 09/15 Oscar Ahchancezai flecainide 100 mg tablet completed - 09/15 Oscar Walters nebivolol 10 mg tablet active TAKE 1 TABLET BY MOUTH ONCE DAILY (DUE FOR FOLLOW UP) 08/22 Julia Powell bupropion HCl 300 mg tablet extended release 24 hr active Kristen Lopez MD hydroxychloroquine 200 mg tablet active Kristen Lopez MD Bystolic 10 mg tablet completed Take 1 tablet by mouth once a day DUE FOR FOLLOW UP 04/25 - 08/22 Julia Powell magnesium oxide 400 mg (241.3 mg magnesium) tablet active Take 1 tablet by mouth once daily 02/06 Kristen Lopez MD digoxin 125 mcg (0.125 mg) tablet completed Take 1 tablet by mouth once a day on weekdays. Do not take on weekends. 11/11 - 09/15 Oscar Walters magnesium oxide 400 mg magnesium tablet completed Take 1 tablet by mouth once a day 10/21 - 02/06 Sivakumar Velazquez Bystolic 10 mg tablet completed Take 1 tablet by mouth once a day TAKE 1 TABLET BY MOUTH DAILY 01/28 - 04/25 Nancie Miranda nebivolol 10 mg tablet completed Take 1 tablet by mouth once a day 10/06 - 11/05 Nancie Miranda Bystolic 10 mg tablet completed ONE TAB. DAILY 01/17 - 10/06 Kristen Lopez MD BYSTOLIC 10 MG ORAL TABLET completed ONE TAB. DAILY 10/12 - 01/17 Kristen Lopez MD CARDIZETanya CD 180 MG ORAL CAPSULE EXTENDED RELEASE 24 HOUR completed one daily 09/22 - 10/12 Kristen Lopez MD Isibloom 0.15-0.03 mg tablet active as directed 08/18 Nancie Miranda Celexa 40 mg tablet active once a day 08/18 Nancie Miranda METOPROLOL SUCCINATE ER 100 MG ORAL TABLET EXTENDED RELEASE 24 HOUR completed ONE TAB DAILY 08/18 - 09/22 Kristen Lopez MD LASIX 40 MG ORAL TABLET completed 1 am and 1 pm 08/18 - 05/08 Kellie Ro omeprazole 20 mg capsule,delayed release(DR/EC) active Take 1 by mouth once a day 08/18 Nancie Miranda SOCIAL HISTORY Date Observation Value Provider smoking status Never smoker Oscar Walters smoking status Never smoker Kristen weems MD smoking status Never smoker Kristen weems MD social history E&M S moking History: P atient has never smoked. Kristen Lopez MD smoking status Never smoker Kristen weems MD social history reviewed E&M revi ewed - no changes required Kristen Lopez MD social history reviewed E&M revi ewed - no changes required Kristen Lopez MD smoking status Never smoker Kristen weems MD social history reviewed E&M revi ewed - no changes required Kristen Lopez MD social history E&M S moking History: P atient has never smoked. Kristen Lopez MD social history E&M S moking History: Dale henderson has never smoked. Kristen Lopez MD social history reviewed E&M revi ewed - no changes required Kristen Lopez MD smoking status Never smoker Kellie Mcfarlandsree baptiste social history E&M S moking History: Dale henderson has never smoked. Kristen Lopez MD social history reviewed E&M revi ewed - no changes required Kristen Lopez MD smoking status Never smoker Kellie Mcfarlandsree baptiste social history E&M S moking History: P beatriz has never smoked. Kristen Lopez MD social history reviewed E&M revi ewed - no changes required Kristen Lopez MD smoking status Never smoker Marce Khari social history reviewed E&M revi ewed - no changes required Kristen Lopez MD social history E&M Smoking Histo ry: P beatriz has never smoked. Kristen Lopez MD smoking status Never smoker Marce Khari social history E&M S moking History: Dale henderson has never smoked. Kristen Lopez MD social history reviewed E&M revi ewed - no changes required Kristen Lopez MD smoking status Never smoker Marce Khari number of grandchildren Kristen Lopez MD social history E&M S moking History: Dale henderson has never smoked. Kristen Lopez MD social history reviewed E&M revi ewed - no changes required Kristen Lopez MD Surgical History of - Tonsillectomy Surgical History of - Tonsillectomy Kristen Lopez MD smoking status Never smoker Nancie islas FAMILY HISTORY Family Member Condition Father Negative FH of Coron silvano Artery Disease Mother Negative FH of Coron silvano Artery Disease INSURANCE PROVIDERS Payer name Policy type / Coverage type [place] [employer] ID [facility] [id number] ADVANCE DIRECTIVES Name Date DISCUSSED - NO DECISION MADE TREATMENT PLAN Date Name Performer [id number],C, F ollows with rheumatology Kristen Lopez MD [id number],C, S ymptoms persist. Start digoxin. Kristen Lopez MD [id number],C, T he patient is using CPAP on a regular basis. The patient has been benefiting from therapy and should continue use. Kristen Lopez MD [id number],C, B lood pressure control is satisfactory. Kristen Lopez MD [id number],C, C ontinues on Bystolic 20mg. Continues to have frequent bigeminy PVCs with associated dizziness. Apple watch continues to detect PVCs throughout the day with associated palpitations. Increasing bystolic to 20mg at the last visit didn't reduce burden of palpitations or symptoms frequency. Recent stress cardiolite was negative for ischemia. Will add digoxin 0.125mg every day during the week. Kristen Lopez MD [id number],C,B lood pressure control is satisfactory. Kristen Lopez MD [id number],S, T he patient is using CPAP on a regular basis. The patient has been benefiting from therapy and should continue use. Kristen Lopez MD [id number],C, F ollows with rheumatology Kristen Lopez MD [id number],S, S ymptoms have resolved. Kristen Lopez MD [id number],C, C ontinues on Bystolic. Continues to have frequent bigeminy PVCs, now having dizziness with it. Will order her a stress test cardiolite to rule out ischemia. Kristen Lopez MD [id number],C, C ontinues on Bystolic Continues to have frequent bigeminy PVCs, now having dizziness with it. Will order her a stress test cardiolite to rule out ischemia. Kristen Lopez MD [id number],B,Resolved. Harsh Lopez MD [id number],B,Symptoms have resolved. Kristen Lopez MD [id number],C,T he patient is using CPAP on a regular basis. The patient has been benefiting from therapy and should continue use. Kristen Lopez MD [id number],C,W ell controlled on Bystolic which she continues. Kristen Lopez MD [id number],C,H as lost 90 lbs since surgery and further weight loss was advised. Kristen Lopez MD [id number],C,B lood pressure control is satisfactory. On Bystolic 10mg daily. Kristen Lopez MD Electrophysiology: B P today: 139/109 P rior BP: 109/64 (08/16/2024) Her updated medication list for this problem includes: Nebivolol 10 Mg Tablet (Nebivolol) ..... Take 1 tablet by mouth once daily (due for follow up) Oscar Walters Electrophysiology:s/ p PVC ablation which were found to be epicardial origin and only partially ablated due to proximity to pulmonic valve. No SVT, VT or VF could be induced. Would recommend treating sxs with medical therapy if they recur. Will have her stop Digoxin and continue Flecainide 100 mg BID. Her updated medication list for this problem includes: Flecainide 100 Mg Tablet (Flecainide) ..... Take 1 tablet by mouth twice a day Nebivolol 10 Mg Tablet (Nebivolol) ..... Take 1 tablet by mouth once daily (due for follow up) Oscar Walters Electrophysiology: H er updated medication list for this problem includes: Nebivolol 10 Mg Tablet (Nebivolol) ..... Take 1 tablet by mouth once daily (due for follow up) Oscar Salgadodennis Electrophysiology: T he patient is using CPAP on a regular basis. The patient has been benefiting from therapy and should continue use. Oscar Anthonyflip Electrophysiology Oscar Walters Telehealth Essence dias MD Telehealth: O rders: B ASIC METABOLIC PANEL W/EGFR (90730) C BC (INCLUDES DIFF/PLT) (6399) P ROTHROMBIN TIME WITH INR (8847) U RINALYSIS, COMPLETE W/REFLEX TO CULTURE (3020) P ARTIAL THROMBOPLASTIN TIME, ACTIVATED (763) Essence Friend MD Telehealth: O rders: C omplex e/m visit add on (G2211) B ASIC METABOLIC PANEL W/EGFR (88413) C BC (INCLUDES DIFF/PLT) (6399) P ROTHROMBIN TIME WITH INR (8847) U RINALYSIS, COMPLETE W/REFLEX TO CULTURE (3020) P ARTIAL THROMBOPLASTIN TIME, ACTIVATED (763) Essence Friend MD Telehealth:Extensive review of the pertinent previous and curent labs , EKGs, cardiac tesing and imaging data was done by Dr. Phuc Dias herred decision regarding EP study and ablation was done between the patient and Dr. Friend > 10% PVCs on the montor. H er updated medication list for this problem includes: Nebivolol 10 Mg Tablet (Nebivolol) ..... Take 1 tablet by mouth once daily (due for follow up) Orders: M inor Telehealth (CPT-[id number]) C omplex e/m visit add on (G2211) C HNE PROCEDURES (*) A BLATION w/ Anesthesia (*) B ASIC METABOLIC PANEL W/EGFR (55467) C BC (INCLUDES DIFF/PLT) (6399) P ROTHROMBIN TIME WITH INR (8847) U RINALYSIS, COMPLETE W/REFLEX TO CULTURE (3020) P ARTIAL THROMBOPLASTIN TIME, ACTIVATED (763) Essence Friend MD Telehealth: H er updated medication list for this problem includes: Nebivolol 10 Mg Tablet (Nebivolol) ..... Take 1 tablet by mouth once daily (due for follow up) Essence Friend MD Telehealth: H er updated medication list for this problem includes: Nebivolol 10 Mg Tablet (Nebivolol) ..... Take 1 tablet by mouth once daily (due for follow up) Essence Friend MD Telehealth Essence dias MD Telehealth Essence dias MD Telehealth Essence dias MD Telehealth: H er updated medication list for this problem includes: Nebivolol 10 Mg Tablet (Nebivolol) ..... Take 1 tablet by mouth once daily (due for follow up) Essence Friend MD Cardiology: T he patient is using CPAP on a regular basis. The patient has been benefiting from therapy and should continue use. Kristen Lopez MD Cardiology:Follows o n a regular basis with opthalmologist Kristen Lopez MD Cardiology:continues to have ventricular bigeminy. The etiology remains unclear. The stress test shows normal perfusion. The EF on echo is normal. Is on beta trino, as well as digoxin with no change in frequency of bigeminy. Will request to see Dr. Friend. Kristen Lopez MD Cardiology: B P today: 109/64 P rior BP: 115/82 (06/21/2024) Her updated medication list for this problem includes: Nebivolol 10 Mg Tablet (Nebivolol) ..... Take 1 tablet by mouth once daily (due for follow up) Kristen Lopez MD Cardiology:freq PVC' s on holter. remains on digoxin, tolerating well Kristen Lopez MD Cardiology:No signif icant arrhythmias on holter, freq PVC's . No new episodes of syncope since last visit. r emains on digoxin and is tolerating well Kristen Lopez MD Cardiology:frequent PVC on holter. Recommend to followup with Dr. Phuc Lopez MD Cardiology: T he patient is using CPAP on a regular basis. The patient has been benefiting from therapy and should continue use. Oscarfrank Walters Cardiology:Will obta in holter to rule out any significant arrythmias as culprit Oscarfrank Walters Cardiology:May due h ypotension from significant weight loss, she has also stopped Digoxin and may be having arrythmias, will check holter and have her resume Dig. Oscarfrank Walters Cardiology: B P today: 115/82 P rior BP: 130/80 (11/11/2022) Her updated medication list for this problem includes: Nebivolol 10 Mg Tablet (Nebivolol) ..... Take 1 tablet by mouth once daily (due for follow up) Oscarfrank Walters Cardiology:Will obta in holter to rule out any significant arrythmias as culprit for her syncope, I suspect her weight loss is playing a role in her sxs, hypotension. Will check Echo as well to evaluate LVF and valve function. Adivsed her to resume Digoxin as directed. Oscar naveed Cardiology:Frequent PVC on EKG today, [facility] B P today: 115/82 P rior BP: 130/80 (11/11/2022) Her updated medication list for this problem includes: Bystolic 10 Mg Tablet (Nebivolol) ..... Take 1 tablet by mouth once a day due for follow up Oscarfrank Walters Cardiology:Frequent PVC on EKG t skip Oscarfrank Walters Cardiology:Will obta in holter to rule out any significant arrythmias as culprit for her syncope, I suspect her weight loss is playing a role in her sxs, hypotension. Will check Echo as well to evaluate LVF and valve function. Oscar Walters Cardiology: F ollows with rheumatology Kristen Lopez MD Cardiology: S ymptoms persist. Start digoxin. Kristen Lopez MD Cardiology: T he patient is using CPAP on a regular basis. The patient has been benefiting from therapy and should continue use. Kristen Lopez MD Cardiology: B lood pressure control is satisfactory. Kristen Lopez MD Cardiology: C ontinues on Bystolic 20mg. Continues to have frequent bigeminy PVCs with associated dizziness. Apple watch continues to detect PVCs throughout the day with associated palpitations. Increasing bystolic to 20mg at the last visit didn't reduce burden of palpitations or symptoms frequency. Recent stress cardiolite was negative for ischemia. Will add digoxin 0.125mg every day during the week. Kristen Lopez MD Cardiology:Blood pre ssure control is satisfactory. Kristen Lopez MD Cardiology: T he patient is using CPAP on a regular basis. The patient has been benefiting from therapy and should continue use. Kristen Lopez MD Cardiology: F ollows with rheumatology Kristen Lopez MD Cardiology: S ymptoms have resolved. Kristen Lopez MD Cardiology: C ontinues on Bystolic. Continues to have frequent bigeminy PVCs, now having dizziness with it. Will order her a stress test cardiolite to rule out ischemia. Kristen Lopez MD Cardiology: C ontinues on Bystolic Continues to have frequent bigeminy PVCs, now having dizziness with it. Will order her a stress test cardiolite to rule out ischemia. Kristen Lopez MD Cardiology:Resolved. Kristen randhawa MD Cardiology:Symptoms have resolve d. Kristen Lopez MD Cardiology:The patie nt is using CPAP on a regular basis. The patient has been benefiting from therapy and should continue use. Kristen Lopez MD Cardiology:Well cont rolled on Bystolic which she continues. Kristen Lopez MD Cardiology:Has lost 90 lbs since surgery and further weight loss was advised. Kristen Lopez MD Cardiology:Blood pre ssure control is satisfactory. On Bystolic 10mg daily. Kristen Lopez MD [facility] follow up :Follows opthamology. Off Lasix. [facility] follow up :Blood pressure elevated today at 144/86. Advised reduced sodium intake and routine monitoring of the blood pressure. We aim for blood pressure less than 130/80. [facility] follow up :Patient has lost 50lbs since last seen. Encouraged continued weight loss. [facility]. [facility] follow up :The patient is using CPAP on a regular basis. The patient has been benefiting from therapy and should continue use. [facility] follow up :Resolved. She is off Lasix. [facility] follow up :Controlled. Will change back to the Bystolic as she feels it is more effective. Daltonben Navarro Cardiology follow up - R:Weight loss advised Kristen Lopez MD Cardiology follow up - R:Follows opthamology. 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 Kristen Lopez MD Cardiology follow up - R:The patient is using CPAP on a regular basis. The patient has been benefiting from therapy and should continue use. Kristen Lopez MD Cardiology follow up - R:Controlled on Bystolic which she continues. Kristen Lopez MD Cardiology follow up - R:Blood pressure control is satisfactory. Kristen Lopez MD Cardiology follow up - R:Well controlled on Bystolic which she continues. Kristen Lopez MD Cardiology follow up:Weight loss advised. Kristen Lopez MD Cardiology follow up :Follows opthamology. 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 Kristen Lopez MD Cardiology follow up :The patient is using CPAP on a regular basis. The patient has been benefiting from therapy and should continue use. Kristen Lopez MD Cardiology follow up :Blood pressure control is satisfactory. Kristen Lopez MD Cardiology follow up :Will start Bystolic which will hopefully improve her symtoms. She did not benefit from Cardizem as well as Metoprolol which were discontinued. Kristen Lopez MD Cardiology follow up :Blood pressure control is satisfactory. Kristen Lopez MD Cardiology follow up :No significant edema on exam today. Kristen Lopez MD Cardiology follow up :Seems to have worsened on Cardizem. She also complains of leg edema, so Cardizem has been discontinued. Starting her on Bystolic 10mg daily to see if that resolves her symptoms. Kristen Lopez MD Cardiology follow up :Follows opthamology. 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 Diamox was previously considered but was on hold due to nephrolithiasis/ renal impairment. Her spinal pressures on her last spinal tap were elevated but trending downward. Kristen Lopez MD Cardiology follow up :The patient is using CPAP on a regular basis. The patient has been benefiting from therapy and should continue use. Kristen Lopez MD Cardiology follow up :Blood pressure slightly elevated in the office today at 144/86. No changes to antihypertensive medications have been made. The patient will monitor her blood pressure. Kristen Lopez MD Cardiology follow up :Frequent PVCs and ventricular bigeminy seen on recent monitor. The etiology of which is unclear. Will arrange stress test to rule out cardiac ischemia. Will start Cardizem CD 180mg daily and discontinue Metoprolol. Kristen Lopez MD Cardiology New Patie nt:The patient is using CPAP on a regular basis. The patient has been benefiting from therapy and should continue use. 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 Diamox was considered but was on hold due to nephrolithiasis/ renal impairment. Her spinal pressures on her last spinal tap were elevated. Kristen Lopez MD Cardiology New Patie nt:Blood pressure control is satisfactory. Kristen Lopez MD Cardiology New Patie nt:She has been on Metoprolol Succinate 100mg daily since April with no significant improvement in symptoms. She continues to experience intermittent lightheadedness and dizziness as well as palpitations. The palpitations are described as the heart missing a beat followed by frequent beats one after the other. A telesentry monitor and echo will be arranged. Kristen Lopez MD Date Name Stress Routine PARTIAL THROMBOPLAST IN TIME, ACTIVATED URINALYSIS, COMPLETE W/REFLEX TO CULTURE PROTHROMBIN TIME WIT H INR CBC (INCLUDES DIFF/P LT) BASIC METABOLIC PANE L W/EGFR ABLATION w/ Anesthes ia [facility] PROCEDURES Complete Echo Monitor - Telemetry (Mobile Cardiac) Test, Urin e Stress Exercise Card iolite Test Complete Echo Test Test Stress Regadenoson Mobile Cardiac Tele Complete Echo HISTORY OF PROCEDURES Procedure Date Procedure Name Provider Procedure Notes S tatus Complex e/m visit ad d on Essence Friend MD completed EKG Essence Friend MD comp leted Complex e/m visit ad d on Essence Friend MD completed Complex e/m visit ad d on Kristen Lopez MD completed EKG Kristen Lopez MD complet ed Complex e/m visit ad d on Kristen Lopez MD completed EKG Kristen Lopez MD complet ed EKG Kristen Lopez MD complet ed EKG Kristen Lopez MD complet ed EKG Kristen Lopez MD complet ed EKG Kristen Lopez MD complet ed EKG Kristen Lopez MD complet ed EKG Kristen Lopez MD complet ed Regadenoson, 4 units Kristen Lopez MD completed Cardiolite, 2 units Kristen Lopez MD completed SPECT Images Kristen Lopez MD compl eted Stress EKG Kristen Lopez MD complet ed EKG Kristen Lopez MD complet ed Event Monitor Salmatenzin Borrero complete d EKG Kristen Lopez MD complet ed
--- OUTSIDE RECORDS SUMMARY | 2024-11-28 10:03 | XMS_ITS | Data Portability ---
Author Organization [facility] Address [address] [place] [address] Care Team Providers Care House Visitor Name Role Phone SAMANTHA BARTH Primary Care Provider Assessment Encounter Date Assessment Date Assessment LastModified by Organization Details LastModified Time 06/14/2024 06/14/2024 Annual gynecological exam performed. Patient will come back in a year unless there are new symptoms. [email or web address] Not available 05/29/2024 12:13:21 Plan of Treatment Reminders Order Date Submit Date Provider Last Modified By Organization Details Last Modified Time Details Appointments None recorded. Lab pap, IG + HR HPV 2023 [facility] (Lab), [address], [place], [address], 15:00:32 Referral None recorded. Procedures None recorded. Surgeries None recorded. Imaging MAMMO, screening, digital, bilateral 2023 [facility] Not available 04:06:58 Medication Orders Seasonique 0.15 mg-30 mcg (84)/10 mcg(7) tablets,3 month dose pack 2023 [facility], [place], [address], 15:01:16 Patient TargetsNo targets recorded. Patient InstructionsNo instructions recorded. Reason for Referral None Reported. 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 Elect favio hill blayne d by Susan Hernandez ret, CT on 06/21 at 1:56 PM ----- ----- ----- ----- ----- ----- ----- ----- ----- ----- ----- ----- ----- ----- ----- ----- ----- ---- HPV RESUL TS: HPV mRNA E6/E7 : No HPV mRNA Detec shannan NOTE: This high risk HPV mRNA assay detec ts fourt een high- risk HPV types (16, 18, 31, 33, 35, 39, 45, 51, 52, 56, 58, 59, 66, 68) witho ut diffe renti ation . COMME NT: This speci men was revie wed by a Cytot echno logis t and/o r Patho logis t (as indic ated in this repor t) after evalu ation using the Thinp rep Imagi ng Syste m. CLINI MEGAN INFOR MATIO N: Menst rual Statu s: LMP (if appli cable ): Clini megan Histo ry/Pr eviou s Pap: Type of Neopl gaston (if appli cable ): Signi fican t Clini megan Findi ngs: Other Histo ry: Hormo diana (if appli cable ): PAP EDUCA HALIMA L NOTE: The Pap Test is a scree willa test with an inher ent false negat robina rate. Liqui d-bas ed sampl ing may decre ase, but will not elimi ramon, false negat robina resul ts. A negat robina resul t does not precl ude the prese nce and/o r devel opmen t of disea se, since the prese nce of abnor mal cells in the sampl e depen ds on the locat ion of the lesio n and sampl ing techn ique. Hussain nued regul ar scree willa is the best metho d of cance r preve ntion . If repor shannan cytol ogic findi ng do not corre late with physi megan and/o r histo rical findi ngs, furth er inves tigat ion is recom panda d, as clini josy patricia nted. Not Available [facility] (Lab) [address], [place], [address], 06/21/2024 15:00:31 Result Notes None recorded. Procedures Surgical History Date Name Laterality Status Provider Name and Address Organization Details Recorded Time 05/09/20 24 simple nephrolithotomy completed [facility] 06/14/2024 14:34:20 03/05/20 24 Cholecystectomy completed [facility] 06/14/2024 14:25:48 06/09/20 23 Gastric Bypass completed [facility] 06/14/2024 14:25:48 08/09/19 21 Date of Last Pap Smear completed [facility] 06/14/2024 14:25:34 07/23/20 13 Caesarean Section completed [facility] 06/14/2024 14:25:48 08/09/19 04 tonsilectomy/adenoi ds completed [facility] 06/14/2024 14:25:48 Imaging Results None recorded. Procedure Notes None recorded. Medical Equipment None Reported. Allergies Allergen ID Allergen Name Allergen Category Reaction Reaction Severity Criticality Documentation Date Start Date Code Code System Note Provider Name and Address Organization Details Recorded Time 97075 codeine medicatio n hives moderate Not available 06/14/2024 2670 RxNorm [facility] 4 14:25:55 57777 hydrocodo ne Not available Not available Not available Not available 06/14/2024 5489 RxNorm [facility] 4 14:25:55 32335 neomycin medicatio n Not available Not available Not available 06/14/2024 7299 RxNorm [facility] 4 14:25:55 68312 adhesive environme nt,medica tion Not available Not available Not available 06/14/2024 99092 UNK [facility] 4 14:25:55 70488 amoxicill in medicatio n hives severe Not available 06/14/2024 723 [facility] 4 14:25:55 63406 vancomyci n medicatio n hives severe Not available 06/14/2024 93117 [facility] 4 14:25:55 Medications Name Sig Start Date Stop Date Status Note LastModified by Organization Details LastModified Time cyclobenzap rine 10 mg tablet TAKE 1 TABLET BY MOUTH THREE TIMES DAILY 06/14 completed Not Available Not Available Not Available doxycycline hyclate 100 mg capsule TAKE 1 CAPSULE BY MOUTH TWICE DAILY FOR INFECTION FOR 10 DAYS 09/14 completed Not Available Not Available Not Available citalopram 40 mg tablet TAKE 1 TABLET BY MOUTH ONCE DAILY 06/14 completed Not Available Not Available Not Available oxybutynin chloride ER 10 mg tablet,exte nded release 24 hr TAKE 1 TABLET BY MOUTH ONCE DAILY NEEDED FOR BLADDER SPASMS 06/14 completed Not Available Not Available Not Available clobetasol 0.05 % topical cream APPLY 1 TO 2 GRAMS TO AFFECTED AREA TWICE DAILY NEEDED FOR 30 DAYS 06/14 completed Not Available Not Available Not Available oxycodone 5 mg/5 mL oral solution 06/14 completed Not Available Not Available Not Available tramadol 50 mg tablet TAKE 1 TABLET BY MOUTH EVERY 6 HOURS NEEDED FOR PAIN 06/14 completed Not Available Not Available Not Available citalopram 20 mg tablet TAKE 1 TABLET BY MOUTH ONCE DAILY DIRECTED FOR ANXIETY active Not Available Not Available No t Available magnesium oxide 400 mg (241.3 mg magnesium) tablet TAKE 1 TABLET BY MOUTH ONCE DAILY active Not Available Not Available No t Available tamsulosin 0.4 mg capsule TAKE 1 CAPSULE BY MOUTH NIGHTLY AT BEDTIME 06/14 completed Not Available Not Available Not Available dextroamphe tamine-amph etamine ER 20 mg 24hr capsule,ext end release TAKE 1 CAPSULE BY MOUTH ONCE DAILY active Not Available Not Available No t Available phenazopyri dine 100 mg tablet TAKE 1 TABLET BY MOUTH THREE TIMES DAILY NEEDED 06/14 completed Not Available Not Available Not Available hyoscyamine 0.[address] 1 TABLET BY MOUTH UNDER THE TONGUE EVERY 4 HOURS NEEDED 06/14 completed Not Available Not Available Not Available flecainide 100 mg tablet active Not Available Not Available Not Available omeprazole 20 mg capsule,del ayed release TAKE 1 CAPSULE BY MOUTH TWICE DAILY BEFORE BREAKFAST AND SUPPER active Not Available Not Available No t Available digoxin 125 mcg (0.125 mg) tablet TAKE 1 TABLET BY MOUTH ONCE DAILY ON THE WEEK DAYS. DO NOT TAKE ON WEEKENDS. active Not Available Not Available No t Available clobetasol 0.05 % topical ointment APPLY OINTMENT TOPICALLY TO HANDS TWICE DAILY FOR 14 DAYS 06/14 completed Not Available Not Available Not Available hydroxychlo roquine 200 mg tablet TAKE 2 TABLETS BY MOUTH ONCE DAILY active Not Available Not Available No t Available methylpredn isolone 4 mg tablets in a dose pack TAKE BY MOUTH DIRECTED ON INSIDE OF PACKAGE 09/14 completed Not Available Not Available Not Available ondansetron 4 mg disintegrat ing tablet 06/14 completed Not Available Not Available Not Available oxycodone 5 mg tablet 06/14 completed Not Available Not Available Not Available bupropion HCl XL 300 mg 24 hr tablet, extended release TAKE 1 TABLET BY MOUTH ONCE DAILY 09/14 completed Not Available Not Available Not Available bupropion HCl XL 150 mg 24 hr tablet, extended release TAKE 1 TABLET BY MOUTH ONCE DAILY IN THE MORNING WITH CITALOPRA M 09/14 completed Not Available Not Available Not Available Buproban 150 mg tablet,exte nded release 09/14 completed Not Available Not Available Not Available nebivolol 10 mg tablet TAKE 1 TABLET BY MOUTH ONCE DAILY (DUE FOR FOLLOW UP) active Not Available Not Available No t Available Allergy Relief (cetirizine ) 10 mg tablet active Not Available Not Available Not Available Dulera 200 mcg-5 mcg/actuati on HFA aerosol inhaler INHALE 2 PUFFS BY MOUTH TWICE DAILY 06/14 completed Not Available Not Available Not Available Dulera 100 mcg-5 mcg/actuati on HFA aerosol inhaler INHALE 2 PUFFS BY MOUTH EVERY 12 HOURS active Not Available Not Available No t Available Ashlyna 0.15 mg-30 mcg (84)/10 mcg(7) tablets,3 month dose pack Take 1 tablet every day by oral route. active Not Available Not Available No t Available Acid Bucket Wash Operator (omeprazole ) 06/14 completed Not Available Not Available Not Available Humira(CF) 40 mg/0.4 mL subcutaneou s syringe kit active Not Available Not Available Not Available hydroxychlo roquine 100 mg tablet 06/14 completed Not Available Not Available Not Available Vitals Date Recorded Body height Body mass index (BMI) Body weight Systolic blood pressure Diastolic blood pressure Provider Name and Address Organization Details Last Updated DateTime 06/14/2024 172.72 cm 30.6 kg/m2 51147.07 g 126 mm[Hg] 80 mm[Hg] Jana Corbin [facility] 4 14:26:30 Date Recorded Body height Body mass index (BMI) Body weight Systolic blood pressure Diastolic blood pressure Provider Name and Address Organization Details Last Updated DateTime 09/14/2024 172.72 cm 29.7 kg/m2 97029.23 g 119 mm[Hg] 76 mm[Hg] [facility] 10:34:09 Social History Question Answer Notes LastModified by Organizat ion Details LastModified Time Tobacco Smoking Status [facility] 06/14/2024 14:31:48 Do You Have An Advance Directive? Yes [email or web address] Information not available 06/14/2024 What Is Your Level Of Alcohol Consumption? Occasional [email or web address] Information not available 06/14/2024 How Many Years Have You Consumed Alcohol? 20 [email or web address] Information not available 06/14/2024 Are You Blind Or Do You Have Difficulty Seeing? No [email or web address] Information not available 06/14/2024 What Is Your Level Of Caffeine Consumption? Heavy [email or web address] Information not available 06/14/2024 How Much Tobacco Do You Chew? None Information not available 06/14/2024 In The 14 Days Before Symptom Onset, Have You Had Close Contact With A Laboratory-confir med COVID-19 While That Case Was Ill? No [email or web address] Information not available 06/14/2024 In The 14 Days Before Symptom Onset, Have You Had Close Contact With A Person Who Is Under Investigation For COVID-19 While That Person Was Ill? No [email or web address] Information not available 06/14/2024 Have You Been To An Area Known To Be High Risk For COVID-19? No [email or web address] Information not available 06/14/2024 Are You Currently Employed? Yes [email or web address] Information not available 06/14/2024 Are You Deaf Or Do You Have Serious Difficulty Hearing? No [email or web address] Information not available 06/14/2024 What Type Of Diet Are You Following? SPECIFIC [email or web address] Information not available 06/14/2024 What Is The Highest Grade Or Level Of School You Have Completed Or The Highest Degree You Have Received? 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 Yes [email or web address] Information not available 06/14/2024 Do You Use Protection During Sex? No Information not available 06/14/2024 Do You Use Your Seat Belt Or Car Seat Routinely? Yes [email or web address] Information not available 06/14/2024 Do You Have Smoke And Carbon Monoxide Detectors In Your Home? Yes [email or web address] Information not available 06/14/2024 How Much Tobacco Do You Smoke? No [email or web address] Information not available 06/14/2024 Do You Feel Stressed (tense, Restless, Nervous, Or Anxious, Or Unable To Sleep At Night)? [id number] [email or web address] Information not available 06/14/2024 Do You Use Any Illicit Or Recreational Drugs? No [email or web address] Information not available 06/14/2024 Do You Use Sunscreen Routinely? Yes [email or web address] Information not available 06/14/2024 Have You Used IV Drugs? No [email or web address] Information not available 06/14/2024 Sex: Unknown Functional Status Question Answer Note LastModified by Organizat ion Details LastModified Time Do you have difficulty walking or climbing stairs? No [email or web address] Information not available 06/14/2024 Are you able to walk? YESWOREST [email or web address] Information not available 06/14/2024 Are you able to care for yourself? Yes [email or web address] Information not available 06/14/2024 Do you have difficulty dressing or bathing? No [email or web address] Information not available 06/14/2024 What is your exercise level? Occasional [email or web address] Information not available 06/14/2024 Mental Status None recorded. Family History Relationship Description Onset Age of this Age Resolved Age Notes LastModified by Organization Details LastModified Time Paternal Aunt Diabetes mellitus [email or web address] Not available 2023 14:25:55 Maternal Grandmother Diabetes mellitus Not available 2023 14:25:55 Paternal Uncle Diabetes mellitus [email or web address] Not available 2023 14:25:55 Maternal Uncle Diabetes mellitus [email or web address] Not available 2023 14:25:55 Paternal Grandfather Diabetes mellitus [email or web address] Not available 2023 14:25:55 Paternal Grandfather Hypertensive disorder [email or web address] Not available 2023 14:31:37 Father Diabetes mellitus [email or web address] Not available 2023 14:25:55 Father Hypertensive disorder [email or web address] Not available 2023 14:31:37 Maternal Grandfather Hypertensive disorder [email or web address] Not available 2023 14:31:37 Mother Hypertensive disorder [email or web address] Not available 2023 14:31:37 Medical History Condition Response Anxiety Disorder Y Acid Reflux (GERD) Y Headaches Y Arthritis Y Hypertension Y Asthma Y Gynecological History Statement/Question Response Flow Heavy Date of LMP 08/30/2024 N Was last menstrual period normal N STIs/STDs N Date of control 12/07/2021 BCPs Desired Control Method BCPs Abnormal Pap Y On BCP's at Conception? Y HPV Vaccine N Duration of Flow (days) 3 Current Control Method Abstinence Age at First Child 32 Frequency of Cycle (Q days) 14 Sexually Active? N Menses Monthly N Age of first menstrual cycle 14 Date of Last Pap Smear 08/09/2020 Sexual Problems? N LMP Definite N 01/07/2014 Obstetrics History GPAL:G 1 P 1 0 0 1 Type Value Full Term 1 Living 1 Total 1 Past Encounters Encounter ID Performer Location Encounter Start Date Encounter Closed Date Diagnosis/Indication Diagnosis SNOMED-CT Code Diagnosis ICD10 Code Diagnosis Note [id number] VICKIE BELTRÁN, [facility] [place] [address] [address] 06/14/2024 14:22:08 06/14/2024 15:10:55 Gynecologic examination 29981138 Z01.419 Annual gynecologi megan exam performed. Patient will come back in a year unless there are new symptoms. Suggest Calcium with Vitamin D if not eating in diet. Patient advised to get annual flu shot. Recommend yearly physicals and perform monthly breast exams. Genetic testing is available for patients with family history of cancer. Engage in safe sexual practices, use condoms. Encouraged to have daily exercise. Avoid tobacco and illicit drugs, moderation of alcohol. If BMI greater than 25 dietary consult advised. If you have any questions please call or email. mammogram- DUE - pt to schedule; order given colon cancer screening - n/a DEXA scan- n/a Pap smear- pap w/ HPV collected today laboratory evaluation - PCP STI testing - declined Screening mammography 24 516523 Z12.31 Irregular periods 428164 07 N92.6 Discussed BC options to help regulate periods.Di scussed all control options in great detail. Pt would like to start Seasonique as she did well with this OCP in the past. She is aware of the risks and benefits. She does not have any medical condition that is contraindi cated with the use of estrogen containing control. Pt will start her pills on the first wednesday following the start of her period. She is aware it is not effective for control the first month. She is also aware of the importance of taking at the same time every day. Encouraged use of condoms as the pill does not protect against STDs. Will return in 3 months for med check. Pt verbalized understand ing. [id number] VICKIE BELTRÁN, [facility] [place] [address] [address] 09/14/2024 10:29:32 09/14/2024 10:52:07 Irregular periods [id number] N92.6 Patient voices improvemen t in symptoms with Seasonique . Happy with BC pills.Risk s/benefits reviewed. Patient to continue to monitor cycles and call if she has questions or concerns.R TO for WWE on or after 06/14/2025. Health Concerns Section Related Observation LastModified by Organization Detai ls LastModified Time None Recorded Concern Status LastModified by Organization Details LastModified Time None Recorded Advance Directives Directive Y: Payers Encounter Date Sequence Insurance Name Policy Number Policy Dorman Covered Member ID Dorman Member ID Guarantor Name 06/14/2024 1 [employer] [id number] Chelsy Yan [id number] 23 Chelsy Yan 09/14/2024 1 [employer] [id number] Chelsy Yan [id number] 23 Chelsy Yan Notes Date Note Type Note Provider Name and Address Organization Details Recorded Time 06/14/2024 text/html Annual GYNReport ed bypatient.Menstrua l cycle:Irregular cycle intervals Urinary symptoms:No hematuria; No incontinence Vulva:No genital lesion Vagina:Normal vaginal discharge Breast:No breast pain; No breast lump; No nipple discharge Sexual complaints:No sexual complaints; No pain during intercourse; Normal libido Menopausal Symptoms:No menopausal symptoms; Normal vaginal lubrication Psychological symptoms:No depression; No anxiety; No PMDD Preventive measures:Encourage self breast examination; Encourage regular exercise; Encourage no tobacco use; Encourage regular mammograms starting age 40; Needs to schedule mammogram Patient presents for annual well woman exam.Pt c/o irregular periods, q14-40 days with mod. to heavy flow. Patient states that she was on Seasonique BC pills to regulate cycles and stopped the BC pills when her last OBGYN retired.Patient not sexually active. VICKIE BELTRÁN NP [address], [place], [address], [facility] 06/14/2024 15:09:42 09/14/2024 text/html Patient presents for a three month med check.Patient has been taking Seasonique for irregular periods. Patient states that her periods have improved and she only has very light, brown discharge x 2-3 days each month. VICKIE BELTRÁN NP [address], [place], [address], [facility] 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 Status 06/14/20 24 1 CLOSED Fetus Data First Name Last Name Admitted to NICU Weight (g) Sex Living Outcome Pediatric Complications Fetus ID Race Codes Race Delivery Type 2834.95 F Full Term [id number] Primary Daniel Calculation Initial Daniel Date Initial Exam Date Initial Exam Provider Initial Ultrasound Date Last Menstrual Period Date Ultra Sound Weeks Gestation 0 Eighteen To Twenty Week Daniel Update Ultra Sound Date Fundal Height At Umbil Quickening Date Ultra Sound Latest Weeks Gestation Final Daniel Confirmed By Final Daniel Confirmed Date Final Daniel Date Ultra Sound Latest Days Gestation 0 0 Menstrual History Last Menstrual Date Menses Monthly On Bcp Conception Prior Menses Frequency Hcg Plus Date Menarche Onset Age Delivery Information Delivery Date Delivery Type Labor Anesthesia Weeks Gestation Incision Type Labor Labor Length Hrs Delivered By Post Complications Tubal Sterilization Discharge Date Comments 3 38 Discharge Information Feeding Method Contraceptive Method Maternal HG B and HCT Levels
--- OUTSIDE RECORDS SUMMARY | 2024-11-28 10:03 | XMS_ITS | Clinical Summary ---
Author Organization [facility] Address [address] [place] [address] Care Team Providers Care Sport Intern Name Role Phone Melanie Neves MD Primary Care Provider [phone] Kristen Lopez MD Unavailable [phone] Kristen Lopez MD Unavailable [phone] Kristen Lopez MD Unavailable [phone] Kristen Lopez MD Unavailable [phone] Kristen Lopez MD Unavailable [phone] Allergies Active Allergy Reactions Criticality Noted Date Comments Amoxicillin Hives 02/15/2014 hives Codeine Vomiting 05/05/2024 Vomiting, diarrhea, rash, syncope Hydrocodone Hives,Diarrhea,Vomit ing 07/17/2020 Iodinated Contrast Media Hives Medium 03/04/2024 Neomycin Rash Low 08/03/2018 Nsaids Other (see comment) 01/11/2021 Gastric sleeve surgery Tape Contact Dermatitis,Rash Low 04/28/2024 Vancomycin Hives 07/17/2020 Medications citalopram 40 MG tablet Take 0.5 tablets (20 mg total) by mouth daily. 0 Active BYSTOLIC 10 MG tablet Take 1 tablet (10 mg total) by mouth daily. 0 Active omeprazole 20 MG capsule Take 1 capsule (20 mg total) by mouth daily. 0 Active mometasone-formote rol (DULERA) 100-5 MCG/ACT inhaler Inhale 1 puff into the lungs 2 (two) times daily. Active Adalimumab (HUMIRA, 2 PEN, SC) Starting after surgery Active SUPER B COMPLEX/C OR Take 1 tablet by mouth daily. Active Calcium Carb-Cholecalcifer ol (CALCIUM 1000 + D OR) Take 1 tablet by mouth daily. Active clobetasol (TEMOVATE) 0.05 % ointment Apply topically 2 (two) times daily. Active furosemide (LASIX) 40 MG tablet Take 1 tablet (40 mg total) by mouth daily as needed. Active hydroxychloroquine (PLAQUENIL) 200 MG tablet Take 2 tablets (400 mg total) by mouth daily. Active Multiple Vitamins-Minerals (WOMENS 50+ MULTI VITAMIN/MIN) Tab Take 1 tablet by mouth daily. Active ondansetron (ZOFRAN-ODT) 4 MG disintegrating tablet Take 1 tablet (4 mg total) by mouth every 6 (six) hours as needed. 4 Active polyethylene glycol (GLYCOLAX) packet Take 240 mLs (17 g total) by mouth daily as needed. 4 Active acetaminophen (TYLENOL) 325 MG tablet Take 2 tablets (650 mg total) by mouth every 6 (six) hours as needed. 4 Active Magnesium 400 MG Cap Take 1 tablet by mouth nightly. Active tamsulosin (FLOMAX) 0.4 MG Cap Take 1 capsule (0.4 mg total) by mouth nightly at bedtime. 15 capsule 4 Active hyoscyamine (LEVSIN/SL) 0.[address] 1 tablet (0.125 mg total) under the tongue every 4 (four) hours as needed. 30 tablet 4 Active traMADol (ULTRAM) 50 MG tabletIndications: Acute Pain < 3 Day Supply Take 1 tablet (50 mg total) by mouth every 6 (six) hours as needed for Pain. 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 - 09/01/2024 11:59 PM CLOUD SOFTWARE ENGINEER Hospital Encounter [facility] [place] [address] Danis Gonzalez MD Discharge Disposition: Home or Self Care (Routine Discharge) 09/01/2024 Travel from Last 3 Months Family History Medical History Relation Comments Diabetes Father Hypertension Father Cancer Mother cervical Hypertension Mother Relation Status Comments Father Alive Mother Alive Social History Tobacco Use Types Packs/Day Years [...] Sex Assigned at Female 09/01/2024 10:51 AM 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 SOFTWARE 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 Legal Sex Female 7:34 PM CDT Gender Identity Not on file Sexual Orientation Not on file Last Filed Vital Signs Vital Sign Reading Time Taken Comments Blood Pressure 137/80 05/05/2024 10:52 AM CDT Pulse 73 05/05/2024 10:52 AM CDT Temperature 36.6 C (97.8 F) 05/05/2024 10:52 AM CDT Respiratory Rate 16 05/05/2024 10:52 AM CDT Oxygen Saturation 97% 05/05/2024 10:52 AM CDT Inhaled Oxygen Concentration - - Weight 90.9 kg (200 lb 6.4 oz) 05/05/2024 6:35 A M CDT Height 172.7 cm (5' 8 ) 05/05/2024 6:35 AM CDT Body Mass Index 30.47 05/05/2024 6:35 AM CDT Plan of Treatment Health Maintenance Due Date Last Done Comments Annual Physical 1985 Hepatitis C 2000 Hepatitis B Vaccines (1 of 3 - 19+ 3-dose series) 2001 Cervical Cancer Screening Pap with HPV Testing (Age 30 to 64) Every 5 Years 2012 Mammogram Screening 2022 Cervical Cancer Screening Pap Smear (Age 30 to 64) Every 3 Years 06/14/2027 06/14/2024 Cervical Cancer Screening with HPV 06/14/2027 DTaP, Tdap and Td Vaccines (4 - Td or Tdap) 10/07/2032 10/07/2022, 07/24/2013, 08/09/2012 Pneumococcal Vaccine: Pediatrics (0 to 5 Years) and At-Risk Patients (6 to 49 Years) Aged Out 10/07/2022 No longer eligible based on patient's age to complete this topic COVID-19 Vaccine Completed 04/17/2024, , 05/13/2021, Additional history exists HPV Vaccines Aged Out No longer eligi ble based on patient's age to complete this topic Meningococcal B Vaccine Aged Out No l onger eligible based on patient's age to complete this topic Meningococcal Vaccine Aged Out No last madhav eligible based on patient's age to complete this topic RSV Immunizations Under 20 Months Aged Out No longer eligible based on patient's age to complete this topic Medical Devices Implanted Type 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 Automotive 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 Device Identifier Shelf Expiration Date Model / Serial / Lot Stent Ureteral 6fr 26cm Pigtl Crv Taper Tip Bldr Mrk - [id number] Implanted:Qty : 1 on 05/05/2024 by Danis Gonzalez MD at [facility] Stent Right: Ureter Tubis [id number] 12/09/2026 [id number] 30 / / [id number] Procedures Procedure Name Priority Date/Time Associated Diagnosis Comments US RETROPERITONEAL COMP Routine 09/01/19 11:18 AM CLOUD SOFTWARE ENGINEER Urolithiasis from Last 3 Months Results * US RETROPERITONEAL COMP (09/01/2024 11:18 AM CLOUD SOFTWARE ENGINEER) Anatomical Region Laterality Modality Abdomen Ultrasound 09/08/2024 1:15 PM CLOUD SOFTWARE ENGINEER Impressions 09/08/2024 1:16 PM CLOUD SOFTWARE ENGINEER IMPRESSION: No stones. No hydronephrosis. Ordered By: DANIS GONZALEZ Interpreted By: Abundio Block MD, 09/08/2024 1:15 PM Narrative 09/08/2024 1:16 PM CLOUD SOFTWARE ENGINEER [address] [address] Examination: Retroperitoneal ultrasound. Exam date: 09/01/2024 Clinical history: pt here for routine renal follow up after right renal stone removal done 05/05/24. pt reports no problems today Comparison: 01/11/2021 Technique: Sonographic evaluation of the retroperitoneum, including both kidneys and the urinary bladder, was performed utilizing grayscale and color Doppler technique. Findings: RIGHT KIDNEY: The right kidney measures 10.14 x 5.41 x 4.56 cm and demonstrates normal echogenicity and color Doppler flow. There is no cyst, mass, echogenic calculus, or hydronephrosis. LEFT KIDNEY: The left kidney measures 11.56 x 5.58 x 5.17 cm and demonstrates normal echogenicity and color Doppler flow. There is no cyst, mass, hydronephrosis, or echogenic calculus. URINARY BLADDER: There is no urinary bladder wall thickening. No bladder stones. Bilateral ureteral jets are visualized. Procedure Note Abundio Block MD - 09/08/[address] [address] Examination: Retroperitoneal ultrasound. Exam date: 09/01/2024 Clinical history: pt here for routine renal follow up after right renalstone removal done 05/05/24. pt reports no problems today Comparison: 01/11/2021 Technique: Sonographic evaluation of the retroperitoneum, including bothkidneys and the urinary bladder, was performed utilizing grayscale andcolor Doppler technique. Findings: RIGHT KIDNEY: The right kidney measures 10.14 x 5.41 x 4.56 cm and demonstrates normalechogenicity and color Doppler flow. There is no cyst, mass, echogeniccalculus, or hydronephrosis. LEFT KIDNEY: The left kidney measures 11.56 x 5.58 x 5.17 cm and demonstrates normalechogenicity and color Doppler flow. There is no cyst, mass,hydronephrosis, or echogenic calculus. URINARY BLADDER: There is no urinary bladder wall thickening. No bladder stones. Bilateralureteral jets are visualized. IMPRESSION: No stones. No hydronephrosis. 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 07/17/2020 10:50 AM AARTI R OF ATTY FOR HEALTH CARE Care Teams Sport Intern Relationship Specialty Start Date End Date Melanie Neves MD [address] [place] [address] PCP - General FAMILY PRACTICE 06/21/18 Kristen Lopez MD [address] [place] [address] CARDIOVASCULAR DISEASE 05/01/24 Kristen Lopez MD [address] [place] [address] CARDIOVASCULAR DISEASE 05/02/24 [place] [address] [address] CARDIOVASCULAR DISEASE 05/02/24 [place] [address] [address] CARDIOVASCULAR DISEASE 05/02/24 [place] [address] [address] CARDIOVASCULAR DISEASE 05/02/24
--- OUTSIDE RECORDS SUMMARY | 2024-11-28 10:03 | XMS_ITS | Encounter Summary ---
Author Organization [facility] Address 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
== END 2024-11-28 09:10 | disposition home or self-care (01) ==
PROVIDERS: PCP Family Medicine
DX: Z12.31 Encounter for screening mammogram for malignant neoplasm of breast (principal)
CPT/HCPCS: 77063; 77067